=== PATIENT | male | born 1950 | race Caucasian/White ===

== ENCOUNTER 2020-12-15 05:24 | Inpatient (IN) | payer OTHER ==
[2020-12-14 12:11] LABS: COVID AG,FIA SOURCE NASOPHARYNGEAL
[~2020-12-15] VITALS: Ht 172.7 cm; Wt 90.0 kg
[2020-12-15] MEDS ORDERED: RINGERS SOLUTION,LACTATED 1,000 ML IV ONE ×4 (05:30→09:52)
[2020-12-15] MEDS ORDERED: FentaNYL CITRATE PF 100 MCG/2 ML VIAL IVP ONE ×2 (06:00→06:15)
[2020-12-15] MEDS ORDERED: MIDAZOLAM HCL 2 MG/2 ML VIAL IVP ONE (06:15)
[2020-12-15] MEDS ORDERED: MORPHINE SULFATE/PF 0.5 MG/ML 10 ML AMP IVP ONE (06:16)
[2020-12-15] MEDS ORDERED: BUPIVACAINE LIPOSOME/PF 1.3%-13.3MG/ML SUSPENSION 20 ML VIAL INJ ONE (06:45)
[2020-12-15] MEDS ORDERED: TRANEXAMIC ACID 1,000 MG in DEXTROSE 5%-WATER 50 ML IV ONE (06:45)
[2020-12-15] MEDS ORDERED: SODIUM CHLORIDE 0.9% 100 ML ONE (06:51)
[2020-12-15] MEDS ORDERED: SODIUM CL IRRIG SOLN BAG 3,000 ML IRRIG ONE (06:51)
[2020-12-15] MEDS ORDERED: INSU100I26 SQ (06:57)
[2020-12-15] MEDS ORDERED: BUPIVACAINE HCL/PF 0.5% 30 ML VIAL ONE (06:57)
[2020-12-15] MEDS ORDERED: AMLO-257 PO (06:57)
[2020-12-15] MEDS ORDERED: ASPI-1450 PO (06:57)
[2020-12-15] MEDS ORDERED: CHOL-35 PO (06:57)
[2020-12-15] MEDS ORDERED: SITA100 PO (06:57)
[2020-12-15] MEDS ORDERED: OMEP20 PO (06:57)
[2020-12-15] MEDS ORDERED: TAMS-13 PO (06:57)
[2020-12-15] MEDS ORDERED: FINA-27 PO (06:57)
[2020-12-15] MEDS ORDERED: INSU100V36 SQ (06:57)
[2020-12-15] MEDS ORDERED: LISI-894 PO (06:57)
[2020-12-15] MEDS ORDERED: GABA-1181 PO (06:57)
[2020-12-15] MEDS ORDERED: METF-960 PO (06:57)
[2020-12-15] MEDS ORDERED: FERR-89 PO (06:57)
[2020-12-15] MEDS ORDERED: ATOR20TA86 PO (06:57)
[2020-12-15] MEDS ORDERED: ACET-3385 PO (06:57)
[2020-12-15 06:58] LABS: GLUCOMETER DEV NAME(LOC) SDS.; GLUCOSE,POINT OF CARE 165 MG/DL (70-110)
[2020-12-15] MEDS ORDERED: CELECOXIB 200 MG CAPSULE ONE (07:17)
[2020-12-15] MEDS ORDERED: CeFAZolin 2 GM/DEXTROSE 50 ML IV ONE (07:31)
[2020-12-15] MEDS ORDERED: HYDROmorphone 2 MG/ML VIAL IVP PRN ×2 (08:30)
[2020-12-15] MEDS ORDERED: FentaNYL CITRATE PF 100 MCG/2 ML VIAL IVP PRN (08:30)
[2020-12-15] MEDS ORDERED: BACITRACIN 50,000 UNITS/VIAL IRRIG ONE (08:40)
[2020-12-15] MEDS ORDERED: SUGAMMADEX SODIUM 200 MG/2 ML VIAL IVP ONE (09:02)
[2020-12-15] MEDS ORDERED: ALBUTEROL SULFATE 2.5 MG/0.5 ML NEB SOLUTION NEB ONE (09:45)
[2020-12-15] MEDS ORDERED: BENZOCAINE/MENTHOL LOZENGE PO PRN (09:45)
[2020-12-15] MEDS ORDERED: BISACODYL 10 MG RECTAL RECTAL SUPPOSITORY PR PRN (09:45)
[2020-12-15] MEDS ORDERED: ONDANSETRON HCL 4 MG/2 ML VIAL IVP PRN ×2 (09:45→12:45)
[2020-12-15] MEDS ORDERED: DiphenhydrAMINE HCL 50 MG/ML VIAL IVP PRN (09:45)
[2020-12-15] MEDS ORDERED: FUROSEMIDE 40 MG/4 ML VIAL ONE (09:45)
[2020-12-15] MEDS ORDERED: MethylPREDNISolone SOD SUCC 125 MG/2 ML VIAL ONE (09:46)
[2020-12-15] MEDS: OxyCODONE HCL/ACETAMINOPHEN 5-325 MG TABLET PO PRN ×2 (11:02→20:13)
[2020-12-15 11:05] VITALS: BP 109/43
[2020-12-15] MEDS: SODIUM CHLORIDE 0.9% 1,000 ML IV SCH ×2 (11:14→23:27)
[2020-12-15] MEDS ORDERED: ALBUTEROL SULFATE HFA 90 MCG/PUFF 8 GM INHALER IH ONE (12:00)
[2020-12-15] MEDS ORDERED: METOCLOPRAMIDE HCL 5 MG/ML 2 ML VIAL IVP ONE (12:00)
[2020-12-15] MEDS ORDERED: ONDANSETRON HCL 4 MG/2 ML VIAL IVP ONE (12:00)
[2020-12-15] MEDS ORDERED: LIDOCAINE/PF 2% 5 ML VIAL IM ONE (12:00)
[2020-12-15] MEDS ORDERED: PROPOFOL 1% 20 ML VIAL IVP ONE (12:00)
[2020-12-15] MEDS ORDERED: ROCURONIUM BROMIDE 10 MG/ML 5 ML VIAL IVP ONE (12:00)
[2020-12-15] MEDS: INSULIN LISPRO 100 UNITS/ML SQ PRN ×3 (12:26→20:17)
[2020-12-15] MEDS ORDERED: DEXTROSE 50%-WATER 25 GM/50 ML SYRINGE IVP PRN (12:30)
[2020-12-15 12:44] LABS: GLUCOMETER DEV NAME(LOC) 6S.1; GLUCOSE,POINT OF CARE 225 MG/DL (70-110)
[2020-12-15] MEDS ORDERED: ACETAMINOPHEN 325 MG TABLET PO PRN (12:45)
[2020-12-15 12:54] VITALS: BP 101/46
[2020-12-15] MEDS: CeFAZolin 1 GM/DEXTROSE 50 ML IV SCH ×2 (14:30→21:40)
[2020-12-15] MEDS: CELECOXIB 100 MG CAPSULE PO SCH ×2 (14:31→20:13)
[2020-12-15 15:10] VITALS: BP 127/59
[2020-12-15] MEDS: CYCLOBENZAPRINE HCL 10 MG TABLET PO SCH ×2 (16:06→23:27)
[2020-12-15] MEDS: OXYGEN THERAPY IH SCH (20:00)
[2020-12-15 20:05] VITALS: BP 113/57
[2020-12-15] MEDS: DOCUSATE SODIUM 100 MG CAPSULE PO SCH (20:13)
[2020-12-15] MEDS: FAMOTIDINE 20 MG TABLET PO SCH (20:13)
[2020-12-15] MEDS: INSULIN GLARGINE,HUM.REC.ANLOG 100 UNITS/ML SQ SCH (20:15)
[2020-12-15 20:26] LABS: GLUCOMETER DEV NAME(LOC) 6S.1; GLUCOSE,POINT OF CARE 366 MG/DL (70-110)
[2020-12-15] MEDS ORDERED: FAMOTIDINE 20 MG TABLET PO SCH (21:00)
[2020-12-15] MEDS ORDERED: DOCUSATE SODIUM 100 MG CAPSULE PO SCH (21:00)
[2020-12-15 22:28] LABS: GLUCOMETER DEV NAME(LOC) 6N.1; GLUCOSE,POINT OF CARE 316 MG/DL (70-110)
[2020-12-16] MEDS: OxyCODONE HCL/ACETAMINOPHEN 5-325 MG TABLET PO PRN ×4 (03:34→20:43)
[2020-12-16 05:25] VITALS: BP 121/60
[2020-12-16 06:12] LABS: GLUCOMETER DEV NAME(LOC) 6S.1; GLUCOSE,POINT OF CARE 209 MG/DL (70-110)
[2020-12-16] MEDS: INSULIN LISPRO 100 UNITS/ML SQ PRN ×4 (06:16→20:46)
[2020-12-16 07:08] LABS: BASOPHILS % (AUTO) 0.1 % (0.0-2.0); EOSINOPHILS % (AUTO) 0 % (1.0-6.0); HEMATOCRIT 26.8 % (41-53); HEMOGLOBIN 8.8 g/dL (13.5-17.5); LYMPHOCYTES # (AUTO) 0.9 K/uL (1.0-4.8); LYMPHOCYTES % (AUTO) 6.2 % (22.0-44.0); MEAN CORPUSCULAR HEMOGLOBIN 28.7 pg (26.0-34.0); MEAN CORPUSCULAR VOLUME 87 fL (80-100); MONOCYTES # (AUTO) 1.1 K/uL (0.1-1.0); MONOCYTES % (AUTO) 7.7 % (2.0-9.0); NEUTROPHILS # (AUTO) 12.7 K/uL (1.8-7.7); PLATELET COUNT (AUTO) 162 K/uL (150-450); RED BLOOD CELL COUNT(AUTO) 3.08 MIL/uL (4.50-5.90); RED CELL DISTRIBUTION WIDTH 15.1 % (11.5-14.5)
[2020-12-16 07:25] LABS: CALCIUM, TOTAL 8.3 mg/dL (8.8-10.5); CREATININE 1.23 mg/dL (0.60-1.30); POTASSIUM 5.4 mmol/L (3.5-5.1)
[2020-12-16 07:38] VITALS: BP 126/58
[2020-12-16] MEDS: OXYGEN THERAPY IH SCH ×2 (08:00→20:00)
[2020-12-16] MEDS: CYCLOBENZAPRINE HCL 10 MG TABLET PO SCH ×3 (09:33→23:00)
[2020-12-16] MEDS: RIVAROXABAN 10 MG TABLET PO SCH (09:33)
[2020-12-16] MEDS: CELECOXIB 100 MG CAPSULE PO SCH ×2 (09:33→20:42)
[2020-12-16] MEDS: DOCUSATE SODIUM 100 MG CAPSULE PO SCH ×2 (09:33→20:42)
[2020-12-16] MEDS: FAMOTIDINE 20 MG TABLET PO SCH ×2 (09:33→20:42)
[2020-12-16 15:26] VITALS: BP 122/54
[2020-12-16] MEDS: SODIUM CHLORIDE 0.9% 1,000 ML IV SCH (16:29)
[2020-12-16 17:54] LABS: GLUCOMETER DEV NAME(LOC) 6S.1; GLUCOSE,POINT OF CARE 173 MG/DL (70-110)
[2020-12-16 17:54] LABS: GLUCOMETER DEV NAME(LOC) 6S.1; GLUCOSE,POINT OF CARE 201 MG/DL (70-110)
[2020-12-16 19:32] VITALS: BP 132/62
[2020-12-16] MEDS: INSULIN GLARGINE,HUM.REC.ANLOG 100 UNITS/ML SQ SCH (20:45)
[2020-12-16 22:16] LABS: GLUCOMETER DEV NAME(LOC) 6S.1; GLUCOSE,POINT OF CARE 230 MG/DL (70-110)
[2020-12-17 04:16] VITALS: BP 138/59
[2020-12-17] MEDS: SODIUM CHLORIDE 0.9% 1,000 ML IV SCH ×2 (05:56→16:37)
[2020-12-17] MEDS: OxyCODONE HCL/ACETAMINOPHEN 5-325 MG TABLET PO PRN ×3 (06:00→20:11)
[2020-12-17 06:26] LABS: BASOPHILS % (AUTO) 0.1 % (0.0-2.0); EOSINOPHILS % (AUTO) 0.4 % (1.0-6.0); HEMATOCRIT 24.2 % (41-53); HEMOGLOBIN 7.7 g/dL (13.5-17.5); LYMPHOCYTES # (AUTO) 1.4 K/uL (1.0-4.8); LYMPHOCYTES % (AUTO) 14.4 % (22.0-44.0); MEAN CORPUSCULAR HEMOGLOBIN 28.1 pg (26.0-34.0); MEAN CORPUSCULAR VOLUME 88 fL (80-100); MONOCYTES # (AUTO) 0.8 K/uL (0.1-1.0); MONOCYTES % (AUTO) 8.6 % (2.0-9.0); NEUTROPHILS # (AUTO) 7.5 K/uL (1.8-7.7); NEUTROPHILS % (AUTO) 76.5 % (40.0-70.0); PLATELET COUNT (AUTO) 123 K/uL (150-450); RED BLOOD CELL COUNT(AUTO) 2.75 MIL/uL (4.50-5.90); RED CELL DISTRIBUTION WIDTH 15.6 % (11.5-14.5)
[2020-12-17 07:39] VITALS: BP 149/71
[2020-12-17] MEDS: OXYGEN THERAPY IH SCH ×2 (08:00→20:00)
[2020-12-17] MEDS: CYCLOBENZAPRINE HCL 10 MG TABLET PO SCH ×3 (08:57→23:33)
[2020-12-17] MEDS: DOCUSATE SODIUM 100 MG CAPSULE PO SCH ×2 (08:58→20:10)
[2020-12-17] MEDS: FAMOTIDINE 20 MG TABLET PO SCH ×2 (08:58→20:10)
[2020-12-17] MEDS: RIVAROXABAN 10 MG TABLET PO SCH (09:23)
[2020-12-17] MEDS: CELECOXIB 100 MG CAPSULE PO SCH (09:23)
[2020-12-17] MEDS ORDERED: SODIUM POLYSTYRENE SULFONATE 15 GM/60 ML SUSPENSION BOTTLE PO ONE (11:30)
[2020-12-17] MEDS: INSULIN LISPRO 100 UNITS/ML SQ PRN ×3 (11:34→20:11)
[2020-12-17 11:41] LABS: GLUCOMETER DEV NAME(LOC) 6N.1; GLUCOSE,POINT OF CARE 193 MG/DL (70-110)
[2020-12-17 15:51] LABS: GLUCOMETER DEV NAME(LOC) 6S.1; GLUCOSE,POINT OF CARE 138 MG/DL (70-110)
[2020-12-17 15:57] VITALS: BP 143/57
[2020-12-17 18:34] LABS: GLUCOMETER DEV NAME(LOC) 6N.1; GLUCOSE,POINT OF CARE 152 MG/DL (70-110)
[2020-12-17] MEDS: INSULIN GLARGINE,HUM.REC.ANLOG 100 UNITS/ML SQ SCH (20:12)
[2020-12-17 20:49] VITALS: BP 132/55
[2020-12-17 21:04] LABS: GLUCOMETER DEV NAME(LOC) 6S.1; GLUCOSE,POINT OF CARE 227 MG/DL (70-110)
[2020-12-18] MEDS: OxyCODONE HCL/ACETAMINOPHEN 5-325 MG TABLET PO PRN ×2 (02:32→11:39)
[2020-12-18] MEDS: SODIUM CHLORIDE 0.9% 1,000 ML IV SCH (04:41)
[2020-12-18 05:14] VITALS: BP 137/53
[2020-12-18 06:37] LABS: BASOPHILS % (AUTO) 0.1 % (0.0-2.0); EOSINOPHILS % (AUTO) 1.6 % (1.0-6.0); HEMATOCRIT 22.4 % (41-53); HEMOGLOBIN 7.5 g/dL (13.5-17.5); LYMPHOCYTES # (AUTO) 1.3 K/uL (1.0-4.8); LYMPHOCYTES % (AUTO) 15.6 % (22.0-44.0); MEAN CORPUSCULAR HEMOGLOBIN 29.3 pg (26.0-34.0); MEAN CORPUSCULAR HGB CONC 33.7 G/dL (31.0-37.0); MEAN CORPUSCULAR VOLUME 87 fL (80-100); MONOCYTES # (AUTO) 0.8 K/uL (0.1-1.0); NEUTROPHILS # (AUTO) 6.3 K/uL (1.8-7.7); NEUTROPHILS % (AUTO) 73.7 % (40.0-70.0); PLATELET COUNT (AUTO) 129 K/uL (150-450); RED BLOOD CELL COUNT(AUTO) 2.57 MIL/uL (4.50-5.90); RED CELL DISTRIBUTION WIDTH 15.3 % (11.5-14.5)
[2020-12-18 07:36] LABS: GLUCOMETER DEV NAME(LOC) 6S.1; GLUCOSE,POINT OF CARE 135 MG/DL (70-110)
[2020-12-18] MEDS: OXYGEN THERAPY IH SCH (08:00)
[2020-12-18 08:15] VITALS: BP 147/67
[2020-12-18] MEDS: FAMOTIDINE 20 MG TABLET PO SCH (08:23)
[2020-12-18] MEDS: DOCUSATE SODIUM 100 MG CAPSULE PO SCH (08:23)
[2020-12-18] MEDS: CYCLOBENZAPRINE HCL 10 MG TABLET PO SCH (08:23)
[2020-12-18] MEDS: RIVAROXABAN 10 MG TABLET PO SCH (08:23)
[2020-12-18] MEDS ORDERED: PERCT PO (10:23)
[2020-12-18] MEDS ORDERED: RIVA10TA PO (10:24)
[2020-12-18] MEDS ORDERED: DOCU-270 PO (10:24)
[2020-12-18] MEDS: INSULIN LISPRO 100 UNITS/ML SQ PRN (12:17)
[2020-12-18 14:04] LABS: GLUCOMETER DEV NAME(LOC) 6N.1; GLUCOSE,POINT OF CARE 156 MG/DL (70-110)
== END 2020-12-18 15:20 | disposition home health service (06) | DRG 326 ==
LOC: 6N 05:24
PROVIDERS: ADMIT Orthopaedic Surgery; ATTEND Orthopaedic Surgery
PROC: 0SRC0J9 Replacement of Right Knee Joint with Synthetic Substitute, Cemented, Open Approach (ICD-10-PCS; principal; 2020-12-15 07:30)
DX: M17.11 Unilateral primary osteoarthritis, right knee (principal); R65.10 Systemic inflammatory response syndrome (SIRS) of non-infectious origin without acute organ dysfunction; E11.9 Type 2 diabetes mellitus without complications; I10 Essential (primary) hypertension; E78.5 Hyperlipidemia, unspecified; E66.9 Obesity, unspecified; E83.42 Hypomagnesemia; Z96.652 Presence of left artificial knee joint; E87.6 Hypokalemia; Z79.01 Long term (current) use of anticoagulants; Z79.4 Long term (current) use of insulin; Z79.84 Long term (current) use of oral hypoglycemic drugs; Z79.899 Other long term (current) drug therapy; Z83.3 Family history of diabetes mellitus; Z68.30 Body mass index [BMI] 30.0-30.9, adult
CPT/HCPCS: 80048; 82962; 84132; 85025; 87081; 97110; 97116; 97162; 97165; 97530; 97535; C9290; G0238; J0690; J1170; J1815; J1940; J2250; J2274; J2405; J2704; J2765; J2930; J3010; J3490; J3535; J7030; J7050; J7060; J7120; Q9967